=== PATIENT | female | born 1960 | race Caucasian/White ===

== ENCOUNTER → 2017-11-27 | Outpatient (CLI) | payer OTHER | LOC: M PLARAD 07:14 | DX: M54.5 Low back pain (principal) | CPT/HCPCS: 72148 ==

== ENCOUNTER → 2020-08-07 | Outpatient (REF) | payer OTHER ==
[2020-08-07 14:45] LABS: CREATININE, URINE 97.9 MG/DL; MAU/CREAT RATIO 339.1 MCG/MG (0.0-30.0)
== END ==
LOC: M LAB REF 13:03
PROVIDERS: ATTEND Nurse Practitioner Family
DX: E11.65 Type 2 diabetes mellitus with hyperglycemia (principal)

== ENCOUNTER → 2020-10-05 | Outpatient (CLI) | payer OTHER ==
--- NOTE | 2020-10-05 10:58 | REP ---
INDICATION: PREOP. COMPARISON: No comparison study. TECHNIQUE: Two views.. FINDINGS: The lungs are well inflated and free of infiltrate. There is moderate to marked cardiomegaly. The heart has a somewhat water bottle configuration which raises the question of pericardial effusion. Pulmonary vasculature is slightly cephalized. Pleural angles are sharp. There are degenerative changes in the thoracic spine. The patient is status post cervical discectomy and fusion plating. IMPRESSION: Moderate cardiac enlargement, water bottle shaped heart question pericardial effusion. Cephalization of the vasculature. Status post cervical spine fusion plating.. <Electronically signed by Ajay Arriaga > 10/05/20 0292
== END ==
LOC: M WUC 08:28
PROVIDERS: ATTEND Nurse Practitioner Adult Health
DX: Z01.818 Encounter for other preprocedural examination (principal); I51.7 Cardiomegaly; M43.22 Fusion of spine, cervical region

== ENCOUNTER 2020-10-16 12:15 | Inpatient (IN) | payer OTHER ==
[~2020-10-16] VITALS: Ht 162.6 cm; Wt 85.8 kg
[2020-10-16] VITALS (28 sets, daily range): BP systolic 121–189; BP diastolic 60–95
[2020-10-16] MEDS ORDERED: ATOR80TA59 PO (12:35)
[2020-10-16] MEDS ORDERED: LEVOTAB10 PO (12:35)
[2020-10-16] MEDS ORDERED: GEMF600T5 PO (12:35)
[2020-10-16] MEDS ORDERED: EZET10TA21 PO (12:35)
[2020-10-16] MEDS ORDERED: GLIM2TAB4 PO (12:35)
[2020-10-16] MEDS ORDERED: METF10004 PO (12:35)
[2020-10-16] MEDS ORDERED: FLON1SPR NARES (12:36)
[2020-10-16] MEDS ORDERED: LISI40TA PO (12:36)
[2020-10-16] MEDS ORDERED: NORCO, ANEXSIA 5/325MG TABLET (HYDROcodone/ACETAMINOPHEN) PO PRN (13:15)
[2020-10-16] MEDS ORDERED: ONDANSETRON 4MG/2ML VIAL IV PRN (13:15)
[2020-10-16] MEDS ORDERED: BISACODYL 10 MG SUPP PR PRN (13:15)
[2020-10-16] MEDS ORDERED: LEVALBUTEROL 1.25 MG/0.5 ML CONCENTRATE NEB NEB PRN (13:15)
[2020-10-16] MEDS ORDERED: PERCOCET 5MG/325MG TAB PO PRN (13:15)
[2020-10-16] MEDS ORDERED: ACETAMINOPHEN TAB 650MG DOSE (2X325MG) PO PRN (13:15)
--- NOTE | 2020-10-16 13:20 | REP ---
INDICATION: pericardial effusion. COMPARISON: Portable chest dated 10/16/2020 and PA and lateral chest dated 10/05/2020. TECHNIQUE: CT of the chest without IV contrast. FINDINGS: There is a pericardial effusion measuring up to 2.7 cm in depth. There is calcified vascular atheroma in the coronary arteries. There are no infiltrates or pleural effusions. There is minor atelectasis versus parenchymal scarring in the right middle lobe. No lung masses or nodules are identified. There is no mediastinal or axillary lymph node enlargement. The study is insensitive for hilar lymph node enlargement in the absence of IV contrast. Upper abdomen: The visualized areas of the unenhanced liver, gallbladder, pancreas, spleen, adrenals and renal upper poles are unremarkable. IMPRESSION: Pericardial effusion measuring up to 2.7 cm in depth. Calcified vascular atheroma in the coronary arteries. <Electronically signed by Jordan Garrison > 10/16/20 0295
[2020-10-16 13:21] LABS: BASO # 0.1 10^3/uL (0.0-0.2); BASO % 0.5 % (0.0-1.0); EOS # 0.2 10^3/uL (0.0-0.5); EOS % 1.5 % (0.0-3.0); HEMATOCRIT 47.1 % (36.0-47.0); HEMOGLOBIN 15.6 g/dl (12.0-15.5); LYMPH % 27.3 % (24.0-44.0); MEAN CORPUSCULAR HEMOGLOBIN 29.7 pg (27.0-33.0); MEAN CORPUSCULAR HGB CONC 33.1 g/dl (32.0-36.5); MEAN CORPUSCULAR VOLUME 89.7 fl (80.0-96.0); MONO # 1.1 10^3/uL (0.0-0.8); MONO % 9.6 % (0.0-5.0); NEUTROPHILS # 6.7 10^3/uL (1.5-8.5); NEUTROPHILS % 60.7 % (36.0-66.0); PLATELET COUNT, AUTOMATED 343 10^3/uL (150-450); RED BLOOD COUNT 5.25 10^6/uL (4.00-5.40)
[2020-10-16 13:33] LABS: PARTIAL THROMBOPLASTIN TIME 27.6 SECONDS (24.2-38.5)
[2020-10-16 13:36] LABS: INR 0.92; PROTHROMBIN TIME 12.5 SECONDS (12.5-14.3)
--- NOTE | 2020-10-16 13:56 | REP ---
INDICATION: SOB. COMPARISON: PA and lateral chest 12/06/2019. TECHNIQUE: Single AP view of the chest performed portably with the patient sitting. FINDINGS: The cardiac size is enlarged. On the CT performed the same date there is a pericardial effusion. The lung lee are clear. The brenda, mediastinum, and skeletal structures are unremarkable except for a fracture of the right humeral shaft, probably old and a cervical spine stabilization plate, unchanged. IMPRESSION: Cardiomegaly. There is a pericardial effusion on the CT performed earlier today. <Electronically signed by Jordan Garrison > 10/16/20 [id number]
[2020-10-16] MEDS ORDERED: KCL 20MEQ IN D5/NS 1000ML 1,000 ML IV SCH (14:00)
[2020-10-16] MEDS: LEVALBUTEROL 1.25 MG/0.5 ML CONCENTRATE NEB NEB SCH ×2 (14:00→20:00)
[2020-10-16] MEDS: KETOROLAC 30 MG/ML 1ML VIAL IV SCH ×2 (14:13→20:33)
--- NOTE | 2020-10-16 14:33 | CR ---
CONSULTATION DATE: 10/16/2020 REASON FOR CONSULTATION: The patient is seen at the request of Dr. Copeland of [place] for pericardial effusion. HISTORY OF PRESENT ILLNESS: The patient is a 60-year-old white female who is scheduled for bladder repair surgery and was undergoing a cardiac clearance. She was found to have a large pericardial effusion on echocardiography. Surprisingly she is almost asymptomatic. She is not aware of any shortness of breath. She does not complain of orthopnea or paroxysmal nocturnal dyspnea. She does not complain of peripheral edema. There has been no cough. No fevers, chills, or sweats. No sputum production. There is no chest pain or chest discomfort and there is no dysphagia. She has not had any recent upper respiratory infections. She underwent echocardiogram today and was found to have a very large pericardial effusion. On 10/14, she also underwent a CT scan at [place] and was seen to have a pericardial effusion then. PAST MEDICAL HISTORY: 1. Diabetes. 2. Hypertension. 3. Hypercholesterolemia. PAST SURGICAL HISTORY: To be determined. ALLERGIES: None. HOME MEDICATIONS: - atorvastatin 80 mg once daily - azintamide 10 mg once daily - Flonase two sprays to the nares once daily p.r.n. congestion - gemfibrozil 600 mg once daily - glimepiride 2 mg once daily - lisinopril 40 mg once daily - metformin 1000 mg b.i.d. TRAVEL HISTORY: To be determined. EXPOSURES: No dogs, birds, or cats at home. No exposure to tuberculosis. 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 No asbestos exposure. HABITS: Smokes a pack a day of [place] since she was very young. Alcohol drinks socially. No illicit drugs. FAMILY HISTORY: Not permit to the acute situation. REVIEW OF SYSTEMS: Constitutional: See HPI. Without fevers, chills, sweats, or night sweats. Nose: No epistaxis. Mouth: Has her own teeth. Respiratory: Without cough, shortness of breath, wheezing, does smoke. Cardiac: Without orthopnea or paroxysmal nocturnal dyspnea, prior myocardial infarction, chest discomfort, or chest pain. GI: Without nausea, vomiting, diarrhea, constipation, melena, or hematochezia. : Has urinary incontinence when she sneezes, but no hematuria or dysuria. Neurologic: Without paresthesias, paralysis, or seizures. Psychiatric: Without pathological anxieties, depression, or psychosis. Endocrine. With diabetes. Without thyroid disease. PHYSICAL EXAMINATION: GENERAL APPEARANCE: Obese, well-developed, and well-nourished white female in no acute distress. VITAL SIGNS: Temperature 97.3, heart rate 107 in a regular rate and rhythm, respiratory rate 20 without the use of accessory muscles. She is 97% saturated on room air and her blood pressure is 158/72. EYES: Pupils equal, round, reactive to light. Extraocular movements intact. Sclerae nonicteric. NOSE: Without deformity. MOUTH: Shows mucous membranes to be pink and moist. Lips and gums with no lesions and no thrush. HEAD: Normocephalic. NECK: Supple with no jugular venous distention and no subcutaneous emphysema. Trachea is midline. She has 2+ carotid upstrokes. No bruits. No lymphadenopathy or thyromegaly. LUNGS: Show normal vesicular sounds with percussion note that is full to the diaphragm on either side. CARDIAC: Shows muffled heart sounds without detectable murmurs, clicks, gallops, or rubs. I cannot feel her PMI. ABDOMEN: Soft and nontender, but obese. Bowel sounds are positive. I cannot detect hepatomegaly. There is no CVA tenderness. EXTREMITIES: Show no pretibial edema. No calf tenderness. No differential swelling of the upper extremities. SKIN: Warm, dry, and perfuse without cyanosis or mottling including that of the nail beds and the knees. NEUROLOGIC: Shows 2-12 intact. Normal gross motor. Gross sensation intact. Gait is not tested. PSYCHIATRIC: Shows her to be awake, alert, and oriented x3 with appropriate mood and affect and conversational. INVESTIGATIONS: Her white count is 11.0 with hemoglobin and hematocrit of 15.6 and 47.1 respectively. Platelet count is 343,000. Differential shows 60% neutrophils, 20% lymphocytes, and 9% monocytes. There are no immature forms or toxic granulations. Her chemistries are still pending. PT/INR is 12.5 and 0.92 respectively with a PTT of 26 seconds. COVID test is pending. Her chest x-ray shows a large globular heart. It is a portable chest x-ray. CT scan shows a large pericardial effusion, which is concentric. There are no pulmonary masses. Adrenals have a normal configuration. There is no evidence of cirrhosis. There is no mediastinal lymphadenopathy. She has coronary calcifications of the left anterior descending coronary artery and the right coronary artery, as well as the marginal and circumflex coronary arteries. IMPRESSION: 1. Large pericardial effusion of unknown origin. 2. Diabetes. 3. Hypertension. 4. Hypercholesterolemia. PLAN AND DISCUSSION: I will undertake a pericardiocentesis and tube pericardiostomy in the intensive care unit. It is a concentric effusion and I should be able to approach it percutaneously rather than a pericardial window. We will send the fluid with the requisite studies of hematology, cytologies, chemistries, and bacteriologies. I suspect by exclusion, this is going to bar turner to be a viral pericarditis. I will run an NOVA, RA, and rheumatoid factor for autoimmune etiology.
[2020-10-16 14:40] LABS: BLOOD UREA NITROGEN 18 MG/DL (7-18); CALCIUM LEVEL 9.9 MG/DL (8.5-10.1); CARBON DIOXIDE LEVEL 26 MEQ/L (21-32); CHLORIDE LEVEL 110 MEQ/L (98-107); CK-MB VALUE MASS 3.4 NG/ML (<3.6); CPK CREATINE PHOSPHOKINASE 67 U/L (26-192); CREATININE FOR GFR 0.72 MG/DL (0.55-1.30); GLOMERULAR FILTRATION RATE > 60.0 (>51); GLUCOSE, FASTING 66 MG/DL (70-100); MB/CK RELATIVE INDEX 5.07 (< OR =4); MYOGLOBIN 48 NG/ML (13-71); POTASSIUM SERUM 4.2 MEQ/L (3.5-5.1); SODIUM LEVEL 141 MEQ/L (136-145); TROPONIN I < 0.02 NG/ML (< 0.10)
[2020-10-16] MEDS ORDERED: TRUL0.5I SC (14:41)
[2020-10-16 15:03] LABS: RSV AMPLIFICATION NEGATIVE (NEGATIVE)
[2020-10-16] MEDS ORDERED: MIDAZOLAM INJ 2MG/2ML VIAL (J2250 PER 1MG) As Ordered ONE ×2 (15:32→15:33)
[2020-10-16] MEDS ORDERED: LIDOCAINE 1% MDV 20ML VIAL As Ordered ONE ×2 (15:34→15:52)
[2020-10-16] MEDS ORDERED: MIDAZOLAM INJ 2MG/2ML VIAL (J2250 PER 1MG) IV ONE (16:30)
[2020-10-16] MEDS ORDERED: LIDOCAINE 1% MDV 20ML VIAL SC ONE (16:30)
--- NOTE | 2020-10-16 16:40 | RO ---
OPERATIVE NOTE DATE OF OPERATION: 10/16/2020 PREOPERATIVE DIAGNOSIS: Pericardial effusion. POSTOPERATIVE DIAGNOSIS: Pericardial effusion with tamponade. PROCEDURE: 1. Pericardiocentesis. 2. Pericardiostomy under echocardiographic control with moderate sedation. FINDINGS: Pericardium was drained of 1000 mL of serous fluid. The echocardiogram prior to undertaking the drainage showed a severely compressed right ventricle, which collapsed during diastole. It is surprising that she was not more symptomatic. PROCEDURE DESCRIPTION: Under satisfactory moderate sedation achieved eventually with 6 mg of Versed, patient was prepped and draped in the usual sterile fashion. The subxiphoid fossa was infiltrated with 1% lidocaine to the rectus fascia. Under echocardiographic control, needle was placed, and fluid was obtained after watching the needle enter with the echocardiogram. A wire was placed. Tract was dilated, and a pericardiostomy tube was placed over a dilator and stiff guiding cannula. The pericardiostomy tube was then advanced and specimen was collected. Sent for the records, specimens of cytology, hematologies, bacteriologies, and chemistries. The pericardiostomy tube was secured to the chest wall with three 2-0 silk sutures. Patient tolerated the procedure well, and a chest x-ray is pending.
[2020-10-16] MEDS ORDERED: DEXTROSE 50% 50 ML SYRINGE IV PRN (16:45)
[2020-10-16] MEDS ORDERED: GLUCOSE 4GM CHEW TABLET PO PRN (16:45)
[2020-10-16] MEDS ORDERED: GLUCAGON INJ 1MG VIAL SC PRN (16:45)
--- NOTE | 2020-10-16 16:45 | REP ---
INDICATION: S/P PERICARDIOCENTESIS. 4:24 p.m. film COMPARISON: Comparison chest x-ray October 16, 2020. 1:07 p.m. film. TECHNIQUE: Portable upright AP chest radiograph. FINDINGS: Monitoring electrodes are seen. There is a pericardial drainage catheter overlying the base of the heart projecting at the left upper quadrant. Oxygen delivery tubing is seen. There is linear fibrosis versus platelike atelectasis at the left lung base. No infiltrate is seen. Heart is not enlarged. Pulmonary vasculature is not increased.. No significant bony abnormality. Patient is status post cervical spine discectomy and fusion plating. No evidence of pneumothorax. Heart size is improved compared to the October 16, 2020 with study done at 1:07 p.m. IMPRESSION: Pericardial drainage catheter in place. Cardiac size improved. No complication seen. Platelike atelectasis versus linear fibrosis left base.. <Electronically signed by jAay Arriaga > 10/16/20 [id number]
--- NOTE | 2020-10-16 17:09 | HPEPDOC ---
General Date of Admission Oct 16, 2020 at 13:09 Date of Service: Oct 16, 2020 Chief Complaint The patient is a 60-year-old female admitted with a reason for visit of Pericardial Effusion. 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 She denied any shortness of breath, denied any cough or phlegm, denied any recent URI. Denied any h/o Lupus like disorders. She does say she has arthritis and has some chronic knee pain about 3/10 dull aching in nature with no radiation. Does not need to take any medication for this. She was urgently seen by Dr Braswell and a bedside pericardiocentesis and pericardiotomy tube placement has been planned. Patient was admitted for pericardial effusion with tamponade. Home Medications Scheduled Atorvastatin Calcium (Atorvastatin Calcium) 80 Mg Tablet, 80 MG PO QHS, (Reporte d) Dulaglutide (Trulicity) 1.5 Mg/0.5 Ml Pen.injctr, 1.5 MG SC QWEEK, (Reported) MONDAYS Ezetimibe (Ezetimibe) 10 Mg Tablet, 10 MG PO QHS, (Reported) Gemfibrozil (Gemfibrozil) 600 Mg Tablet, 600 MG PO BID, (Reported) Glimepiride (Glimepiride) 2 Mg Tablet, 2 MG PO DAILY, (Reported) Levocetirizine Dihydrochloride (Levocetirizine Dihydrochloride) 5 Mg Tablet, 5 MG PO DAILY, (Reported) Lisinopril (Lisinopril) 40 Mg Tablet, 40 MG PO DAILY, (Reported) Metformin HCl (Metformin HCl) 1,000 Mg Tablet, 1,000 MG PO BID, (Reported) Scheduled PRN Fluticasone Propionate (Flonase Allergy Relief) 9.9 Ml [place].susp, 2 SPRAY NARES DAILY PRN for CONGESTION, (Reported) Allergies Coded Allergies: No Known Allergies (Unverified , 10/16/20) Past Medical History Medical History Diabetes, hypertension, obesity, Arthritis, HLD, bladder problem Surgical History tubal ligation Neck surgery about 5 years ago , has plate in it. Family History Significant Family History: Diabetes sisters with arthritis Social History * Smoker: current smoker Alcohol: occationally Drugs: denies A-FIB/CHADSVASC A-FIB History Current/History of A-Fib/PAF?: No Review of Systems Constitutional: Denies: Chills, Fever, Night Sweats Eyes: Denies: Pain, Vision change ENT: Denies: Head Aches, Ear Pain, Dysphagia Skin: Denies: Rash, Lesions, Breakdown Pulmonary: Denies: Dyspnea, Cough Cardiovascular: Denies: Chest Pain, Palpitations, Orthopnea, Paroxysmal Noc. Dyspnea, Lt Headedness Gastrointestinal: Denies: Nausea, Vomiting, Abdominal Pain, Diarrhea Genitourinary: Reports: Frequency; Denies: Dysuria, Incontinence, Retention Physical Examination General Exam: Positive: Alert, Cooperative, No Acute Distress Eye Exam: Positive: PERRLA, Conjunctiva & lids normal, EOMI; Negative: Sclera icteric ENT Exam: Positive: Atraumatic, Mucous membr. moist/pink, Pharynx Normal Neck Exam: Positive: Supple, JVD; Negative: thyromegaly Chest Exam: Positive: Clear to auscultation, Normal air movement Heart Exam: Positive: Rate Normal, Regular Rhythm, Normal S1, Normal S2; Negative: Murmurs, Rubs Telemetry: Positive: No significant arrhythmia Abdomen Exam: Positive: Normal bowel sounds, Soft; Negative: Tenderness, Hepatospenomegaly Extremity Exam: Positive: Normal pulses; Negative: Clubbing, Cyanosis, Edema Skin Exam: Positive: Nl turgor and temperature; Negative: Breakdown, Lesion Neuro Exam: Positive: Normal Gait, Normal Speech, Cranial Nerves 3-12 NL, Reflexes 2+ Vital Signs Vital Signs Date Time Temp Pulse Resp B/P (MAP) Pulse Ox O2 Delivery O2 Flow Rate FiO2 10/16/20 15:28 143/78 (99) 10/16/20 15:00 97 18 95 Room Air 10/16/20 12:16 97.3 Laboratory Data Labs 24H Laboratory Tests 2 10/16/20 13:03: Immature Granulocyte % (Auto) 0.4, Neutrophils (%) (Auto) 60.7, Lymphocytes (%) (Auto) 27.3, Monocytes (%) (Auto) 9.6H, Eosinophils (%) (Auto) 1.5, Basophils (%) (Auto) 0.5, Neutrophils # (Auto) 6.7, Lymphocytes # (Auto) 3.0, Monocytes # (Auto) 1.1H, Eosinophils # (Auto) 0.2, Basophils # (Auto) 0.1, Nucleated Red Blood Cells % (auto) 0.0, Prothrombin Time 12.5, Prothromb Time International Ratio 0.92, Activated Partial Thromboplast Time 27.6, Coronavirus (COVID- 19)(PCR) NEGATIVE, Influenza Type A (RT-PCR) NEGATIVE, Influenza Type B (RT-PCR) NEGATIVE, Respiratory Syncytial Virus (PCR) NEGATIVE 10/16/20 14:00: Anion Gap 5L, Glomerular Filtration Rate > 60.0, Calcium Level 9.9, Total Creatine Kinase 67, Creatine Kinase MB 3.4, Creatine Kinase MB Relative Index 5.07H, Myoglobin 48, Troponin I < 0.02, Rheumatoid Factor < 10.0 CBC/BMP Laboratory Tests 10/16/20 13:03 10/16/20 14:00 Assessment/Plan 60 year old female with PMH of Diabetes, hypertension, obesity, Arthritis, HLD, bladder problem 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 She denied any shortness of breath, denied any cough or phlegm, denied any recent URI. Denied any h/o Lupus like disorders. She does say she has arthritis and has some chronic knee pain about 3/10 dull aching in nature with no radiation. Does not need to take any medication for this. She was urgently seen by Dr Braswell and a bedside pericardiocentesis has been planned followed by creation of pericardial window in the OR later. Patient was admitted for pericardial effusion with tamponade. Pericardial effusion cause to be determined. Autoimmune work up has been ordered. RA is negative management as per Dr Braswell. Diabetes Hold metformin and trulicity continue glimiperide Lispro as per sliding scale FS ac and HS Hypertension will continue lisinopril with hold parameters. HLD statin will continue. Plan / VTE VTE Prophylaxis Ordered?: Yes JAS GARCIA MD Oct 16, 2020 16:45
[2020-10-16 17:28] LABS: LDH LACTATE DEHYDROGENASE 133 U/L (84-246)
[2020-10-16] MEDS: HumaLOG INSULIN (NovoLOG) PER UNIT SC SCH (17:30)
[2020-10-16 17:38] LABS: PH BODY FLUID 7.475 UNITS (NOT ESTABLISHED); SOURCE, BODY FLUID pH PERICARDIAL
[2020-10-16 17:57] LABS: APPEARANCE, BODY FLUID CLOUDY (CLEAR); SOURCE, BODY FLUID PERICARDIAL
[2020-10-16 18:00] LABS: SOURCE, BODY FLUID ALBUMIN PLEURAL; SOURCE, BODY FLUID TOT PROTEIN PLEURAL; TOTAL PROTEIN, BODY FLUID 6.5 G/DL (NOT ESTABLISHED)
[2020-10-16 18:01] LABS: AMYLASE, BODY FLUID 56 U/L (NOT ESTABLISHED); CHOLESTEROL, BODY FLUID 64 MG/DL (NOT ESTABLISHED); LDH, BODY FLUID 191 U/L (NOT ESTABLISHED); SOURCE, BODY FLUID AMYLASE PERICARDIAL; SOURCE, BODY FLUID CHOL PERICARDIAL; SOURCE, BODY FLUID GLUCOSE PERICARDIAL; SOURCE, BODY FLUID LDH PERICARDIAL; SOURCE, BODY FLUID TRIG PERICARDIAL; TRIGLYCERIDE, BODY FLUID 16 MG/DL (NOT ESTABLISHED)
[2020-10-16] MEDS: HEPARIN SOD (PORCINE) 5000UNITS/ML 1ML VIAL/SYRINGE SC SCH (20:36)
[2020-10-16] MEDS: gemfibroziL 600 MG TAB PO SCH (20:36)
[2020-10-16] MEDS: EZETIMIBE 10 MG TAB (ZETIA) PO SCH (20:37)
[2020-10-16] MEDS: DOCUSATE SODIUM 100MG CAPSULE PO SCH (20:37)
[2020-10-16] MEDS: ATORVASTATIN 20 MG TAB PO SCH (20:37)
[2020-10-16] MEDS ORDERED: HumaLOG INSULIN (NovoLOG) PER UNIT SC SCH (21:00)
[2020-10-16] MEDS: PERCOCET 5MG/325MG TAB PO PRN (21:56)
[2020-10-17] VITALS (9 sets, daily range): BP systolic 92–162; BP diastolic 56–73
[2020-10-17] MEDS: LEVALBUTEROL 1.25 MG/0.5 ML CONCENTRATE NEB NEB SCH ×4 (01:56→20:00)
[2020-10-17] MEDS: KETOROLAC 30 MG/ML 1ML VIAL IV SCH (02:15)
[2020-10-17 04:42] LABS: BASO # 0.1 10^3/uL (0.0-0.2); BASO % 0.3 % (0.0-1.0); EOS # 0.1 10^3/uL (0.0-0.5); EOS % 0.4 % (0.0-3.0); HEMATOCRIT 47.7 % (36.0-47.0); HEMOGLOBIN 15.2 g/dl (12.0-15.5); MEAN CORPUSCULAR HEMOGLOBIN 28.4 pg (27.0-33.0); MEAN CORPUSCULAR HGB CONC 31.9 g/dl (32.0-36.5); MEAN CORPUSCULAR VOLUME 89.2 fl (80.0-96.0); MONO # 1.1 10^3/uL (0.0-0.8); MONO % 7.1 % (0.0-5.0); NEUTROPHILS % 78.8 % (36.0-66.0); PLATELET COUNT, AUTOMATED 324 10^3/uL (150-450); RED BLOOD COUNT 5.35 10^6/uL (4.00-5.40); WHITE BLOOD COUNT 15.3 10^3/uL (4.0-10.0)
[2020-10-17 05:03] LABS: CALCIUM LEVEL 9.3 MG/DL (8.5-10.1); CREATININE FOR GFR 1.13 MG/DL (0.55-1.30); GLOMERULAR FILTRATION RATE 52.5 (>51); POTASSIUM SERUM 4.5 MEQ/L (3.5-5.1)
[2020-10-17 06:15] LABS: ABG BASE EXCESS -5.4 (-2.0-2.0); ABG HCO3 20.6 MEQ/L (22.0-26.0); ABG O2 SATURATION 95.4 % (95.0-99.0); ABG PARTIAL PRESSURE CO2 41.8 mmHg (35.0-45.0); ABG TOTAL CO2 21.9 MEQ/L (22.0-29.0)
[2020-10-17] MEDS: GLIMEPIRIDE 2 MG TAB PO SCH (07:34)
[2020-10-17] MEDS: HumaLOG INSULIN (NovoLOG) PER UNIT SC SCH ×5 (07:35→20:47)
[2020-10-17] MEDS ORDERED: NS 1,000 ML IV SCH (08:00)
--- NOTE | 2020-10-17 08:08 | REP ---
INDICATION: pericardial effusion COMPARISON: 10/16/2020 TECHNIQUE: PA and lateral. FINDINGS: Pericardial drainage tube is identified and the cardiac silhouette appears decreased in size. The lung lee demonstrate stable chronic appearing interstitial changes. Lateral view cannot exclude a small left pleural effusion. No definite pneumothorax. Skeletal structures are intact IMPRESSION: 1. Pericardial drainage catheter in place with decreased cardiac silhouette. 2. Lateral view cannot exclude small left pleural effusion. <Electronically signed by Juanito Mcdonald > 10/17/20 0881
[2020-10-17] MEDS: MOM 30ML SUSPENSION UDC PO SCH (08:47)
[2020-10-17] MEDS: DOCUSATE SODIUM 100MG CAPSULE PO SCH ×2 (08:47→20:47)
[2020-10-17] MEDS: PANTOPRAZOLE 40MG TAB (PROTONIX) PO SCH (08:47)
[2020-10-17] MEDS: gemfibroziL 600 MG TAB PO SCH ×2 (08:47→20:51)
[2020-10-17] MEDS: HEPARIN SOD (PORCINE) 5000UNITS/ML 1ML VIAL/SYRINGE SC SCH ×2 (08:48→20:47)
[2020-10-17] MEDS ORDERED: lisinopriL 40 MG TAB PO SCH (09:00)
--- NOTE | 2020-10-17 10:43 | IPNPDOC ---
Subjective Date Seen The patient was seen on 10/17/20. Subjective Chief Complaint/HPI Feeling good , no issues overnight. Total fluid drained till now is 1275 cc. Having a little dry cough. Bp soft this am. Good oral intake. Objective Physical Examination General Exam: Positive: Alert, Cooperative, No Acute Distress Eye Exam: Positive: PERRLA, Conjunctiva & lids normal, EOMI; Negative: Sclera icteric ENT Exam: Positive: Atraumatic, Mucous membr. moist/pink, Pharynx Normal Neck Exam: Positive: Supple, JVD; Negative: thyromegaly Chest Exam: Positive: Normal air movement, Wheezing (some scattered wheezes on deep expiration.), Other (crackles at the left base) Heart Exam: Positive: Rate Normal, Regular Rhythm, Normal S1, Normal S2; Negative: Murmurs, Rubs Telemetry: Positive: No significant arrhythmia Abdomen Exam: Positive: Normal bowel sounds, Soft; Negative: Tenderness, Hepatospenomegaly Extremity Exam: Positive: Normal pulses; Negative: Clubbing, Cyanosis, Edema Skin Exam: Positive: Nl turgor and temperature; Negative: Breakdown, Lesion Neuro Exam: Positive: Normal Gait, Normal Speech, Cranial Nerves 3-12 NL, Reflexes 2+ Assessment /Plan Assessment 60 year old female with PMH of Diabetes, hypertension, obesity, Arthritis, HLD, bladder problem 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 She denied any shortness of breath, denied any cough or phlegm, denied any recent URI. Denied any h/o Lupus like disorders. She does say she has arthritis and has some chronic knee pain about 3/10 dull aching in nature with no radiation. Does not need to take any medication for this. She was urgently seen by Dr Braswell and a bedside pericardiocentesis and pericardial drain insertion was done in ICU. Patient was admitted for pericardial effusion with tamponade. Pericardial effusion cause to be determined. Most likely viral On initial insertion of pericardial drain 1000 cc came out. Fluid study is exudative predominantly mononuclear. Cultures pending. Gram stain few WBC, few Rbc no organism. Autoimmune work up has been ordered. RA is negative management as per Dr Braswell. Diabetes Hold metformin and trulicity continue glimiperide Lispro as per sliding scale FS ac and HS Hypertension Bp low normal this am will stop lisinopril HLD statin will continue. Plan/VTE VTE Prophylaxis Ordered?: Yes VS, I&O, 24H, Juanita Vital Signs/I&O Vital Signs Date Time Temp Pulse Resp B/P (MAP) Pulse Ox O2 Delivery O2 Flow Rate FiO2 10/17/20 08:43 99.0 108 18 122/59 (80) 90 Nasal Cannula 1.0 10/17/20 04:00 94 I&O- Last 24 Hours up to 6 AM 10/17/20 06:00 Intake Total 360 ml Output Total 1395 ml Balance -1035 ml Laboratory Data 24H LABS Laboratory Tests 2 10/16/20 13:03: Immature Granulocyte % (Auto) 0.4, Neutrophils (%) (Auto) 60.7, Lymphocytes (%) (Auto) 27.3, Monocytes (%) (Auto) 9.6H, Eosinophils (%) (Auto) 1.5, Basophils (%) (Auto) 0.5, Neutrophils # (Auto) 6.7, Lymphocytes # (Auto) 3.0, Monocytes # (Auto) 1.1H, Eosinophils # (Auto) 0.2, Basophils # (Auto) 0.1, Nucleated Red Blood Cells % (auto) 0.0, Prothrombin Time 12.5, Prothromb Time International Ratio 0.92, Activated Partial Thromboplast Time 27.6, Coronavirus (COVID- 19)(PCR) NEGATIVE, Influenza Type A (RT-PCR) NEGATIVE, Influenza Type B (RT-PCR) NEGATIVE, Respiratory Syncytial Virus (PCR) NEGATIVE 10/16/20 14:00: Anion Gap 5L, Glomerular Filtration Rate > 60.0, Calcium Level 9.9, Lactate Dehydrogenase 133, Total Creatine Kinase 67, Creatine Kinase MB 3.4, Creatine Kinase MB Relative Index 5.07H, Myoglobin 48, Troponin I < 0.02, Rheumatoid Factor < 10.0 10/16/20 16:32: Body Fluid pH 7.475, Body Fluid pH Source PERICARDIAL, Body Fluid WBC (Auto) 2094H, Body Fluid RBC (Auto) 6, Body Fluid Mononuclear Cells % Auto 98.0H, Fluid Polymorphonuclear Cell % Auto 2.0H, Body Fluid Glucose Source PERICARDIAL, Body Fluid Glucose 74, Body Fluid Protein Source PLEURAL, Body Fluid Total Protein 6.5, Body Fluid Albumin Source PLEURAL, Body Fluid Albumin 3.9, Body Fluid LDH Source PERICARDIAL, Body Fluid Lactate Dehydrogenase 191, Body Fluid Amylase Source PERICARDIAL, Body Fluid Amylase 56, Body Fluid Cholesterol 64, Body Fluid Cholesterol Source PERICARDIAL, Body Fluid Triglyceride Source PERICARDIAL, Body Fluid Triglycerides 16, Pericardial Fluid Source PERICARDIAL, Pericardial Fluid Color YELLOW, Pericardial Fluid Appearance CLOUDY 10/16/20 17:13: Bedside Glucose (Misc Panel) 57L 10/16/20 18:54: Bedside Glucose (Misc Panel) 104 10/16/20 20:26: Bedside Glucose (Misc Panel) 187H 10/17/20 04:16: Immature Granulocyte % (Auto) 0.4, Neutrophils (%) (Auto) 78.8H, Lymphocytes (%) (Auto) 13.0L, Monocytes (%) (Auto) 7.1H, Eosinophils (%) (Auto) 0.4, Basophils (%) (Auto) 0.3, Neutrophils # (Auto) 12.0H, Lymphocytes # (Auto) 2.0, Monocytes # (Auto) 1.1H, Eosinophils # (Auto) 0.1, Basophils # (Auto) 0.1, Nucleated Red Blood Cells % (auto) 0.0, Anion Gap 7L, Glomerular Filtration Rate 52.5, Calcium Level 9.3 10/17/20 05:58: Blood Gas Bicarbonate Standard 20.0L, Arterial Blood pH 7.310L, Arterial Blood Partial Pressure CO2 41.8, Arterial Blood Partial Pressure O2 80.0, Arterial Blood Total CO2 21.9L, Arterial Blood HCO3 20.6L, Arterial Blood Base Excess - 5.4L, Arterial Blood Oxygen Saturation 95.4 10/17/20 07:25: Bedside Glucose (Misc Panel) 129H CBC/BMP Laboratory Tests 10/16/20 13:03 10/16/20 14:00 10/17/20 04:16 Microbiology Microbiology 10/16/20 Acid Fast Stain, Received Pending 10/16/20 Mycobacterial Culture, Received Pending 10/16/20 Fungal Smear, Received Pending 10/16/20 Fungal Culture, Received Pending 10/16/20 Gram Stain - Final, Resulted 10/16/20 Anaerobic Culture, Resulted Pending 10/16/20 Body Fluid Culture, Received Pending JAS GARCIA MD Oct 17, 2020 10:43
[2020-10-17 11:33] LABS: THYROID STIMULATING HORMONE 0.364 uIU/ML (0.358-3.740)
[2020-10-17 12:07] LABS: ANTINUCLEAR ANTIBODIES DIRECT Negative (Negative)
--- NOTE | 2020-10-17 12:36 | IPN ---
PROGRESS NOTE DATE: 10/17/2020 This is now the first hospital day for Ms. Woods. A tube pericardiostomy catheter was placed yesterday. She has drained now over 1200 mL in total from the pericardium. She is feeling quite well, and her pain is being well controlled at the pericardiostomy tube site. She is in very good spirits and is, in fact, wanting to go home. Her vital signs show a maximum temperature of 99.0 with a heart rate that ranges between 102-118 in sinus rhythm, respiratory rate of constant 18, who is 90%-95% saturated on 2 liters nasal cannula. Her blood pressure is ranging between 92/56 to 162/73. Her intake and output for the past 24 hours has been recorded as 360 in and 1150 out, almost all that from the chest tube. In the past 11 hours, she has had 600 in and 445 out, for a positivity of 155 mL with 145 mL from the pericardial tube in the last 11 hours. PHYSICAL EXAMINATION: Her lung show normal vesicular sounds with some mild inspiratory crackles, most of which clear with coughing. Percussion note is full to the diaphragm. Cardiac exam shows much better heard heart sounds today. I do not appreciate murmurs, clicks, or gallops. There is no rub. I cannot feel her point of maximal impulse (PMI). S1 and S2 are normal. Abdomen is soft and nontender. Bowel sounds are positive. There is no hepatomegaly. No costovertebral angle (CVA) tenderness. I cannot detect a fluid wave. Extremities show no pretibial edema. No calf tenderness. No differential swelling of the upper extremities. Her skin is warm, dry, , and perfused without cyanosis or mottling, including that of the nailbeds and knees. Neck is supple. There no jugular venous distention. No subcutaneous emphysema. Trachea is midline. Mouth shows her mucous membranes to be pink and moist. Lips and commissures without lesions. No thrush. Eyes show her pupils to be equal and reactive. Extraocular movements intact. Sclerae anicteric. Neurologic shows II-XII intact. Normal gross motor, gross sensation intact. Gait is not tested. Psychiatric shows her to awake, alert, and oriented times three with appropriate mood and affect and conversational. Her white count today is 15.3, up from 11.0 yesterday. Hemoglobin and hematocrit 15.2 and 47.7, essentially unchanged from yesterday with a platelet count that is stable at 324. Differential shows 78% neutrophils, 13% lymphocytes, 7% monocytes. There are no immature forms or toxic granulations. Her electrolytes are normal today with a BUN and creatinine of 27 and 1.13, up from 18 and 0.72. Because of the rise in her creatinine, I have discontinued her Toradol. Glucose is 117 with a calcium 9.3. Her pericardial fluid has come back with a pH 7.47 with an LDH of 191 with a corresponding serum LDH of 133 and a total protein of 6.5. Her white cell count is 2094, 98% of which are monocytes and lymphocytes, and 2% are PMNs. This therefore looks like an exudative chronic effusion. It should be noted the glucose is 74, and this does not look to be bacterially infected. Her rheumatoid factor is less than 10.0, and her NOVA screen is still pending. Her chest x-ray today shows the lungs fully expanded to the chest wall. Cardiac silhouette is much diminished today. Pericardial tube looks to be in good place in the pericardial well. Costophrenic angles are sharp. I should note that her troponin yesterday was less than 0.02. IMPRESSION: 1. Pericardial effusion, unknown origin. See discussion below. 2. Diabetes. 3. Hypertension. 4. Hypercholesterolemia. 5. Tobacco abuse. 6. Chronic obstructive pulmonary disease. PLAN AND DISCUSSION: So far, there is very little evidence that this is either an infectious or an inflammatory pericardial effusion. We are still waiting for her antinuclear antibody (NOVA). She had no prior history of viral syndrome, and I would be loathe to imply that this was a viral pericarditis. We will await pathology on the pericardial fluid; however, I see no other masses to point to malignancy. Her thyroid functions were normal, done at [place] yesterday. I will recheck a thyroid stimulating hormone (TSH). There is no evidence of renal failure as a metabolic cause for her pericardial effusion. That therefore leaves us with a physiologic explanation of increased right heart pressures and perhaps pulmonary hypertension secondary to her chronic obstructive pulmonary disease (COPD) and smoking. I will therefore order another echo now that the pericardial effusion is drained to look at the pressures in the right atrium, ventricle, and the pulmonary artery. We will also, of course, look at her global systolic function, although it looked good yesterday. I will transfer her to the progressive care unit (PCU) today.
[2020-10-17] MEDS: PERCOCET 5MG/325MG TAB PO PRN (18:41)
[2020-10-17] MEDS: ATORVASTATIN 20 MG TAB PO SCH (20:47)
[2020-10-17] MEDS: EZETIMIBE 10 MG TAB (ZETIA) PO SCH (20:47)
[2020-10-18] VITALS: BP 126/78
[2020-10-18 04:00] VITALS: BP 132/72
[2020-10-18] MEDS: LEVALBUTEROL 1.25 MG/0.5 ML CONCENTRATE NEB NEB SCH ×4 (04:16→19:44)
[2020-10-18 04:45] LABS: BASO % 0.6 % (0.0-1.0); EOS # 0.1 10^3/uL (0.0-0.5); EOS % 1.6 % (0.0-3.0); HEMATOCRIT 47.4 % (36.0-47.0); HEMOGLOBIN 15.3 g/dl (12.0-15.5); LYMPH # 1.6 10^3/uL (1.5-5.0); LYMPH % 23.4 % (24.0-44.0); MEAN CORPUSCULAR HEMOGLOBIN 28.7 pg (27.0-33.0); MEAN CORPUSCULAR HGB CONC 32.3 g/dl (32.0-36.5); MEAN CORPUSCULAR VOLUME 88.9 fl (80.0-96.0); MONO # 0.7 10^3/uL (0.0-0.8); MONO % 10.9 % (0.0-5.0); NEUTROPHILS # 4.2 10^3/uL (1.5-8.5); NEUTROPHILS % 63.2 % (36.0-66.0); PLATELET COUNT, AUTOMATED 295 10^3/uL (150-450); RED BLOOD COUNT 5.33 10^6/uL (4.00-5.40); WHITE BLOOD COUNT 6.7 10^3/uL (4.0-10.0)
[2020-10-18 05:02] LABS: BLOOD UREA NITROGEN 16 MG/DL (7-18); CALCIUM LEVEL 9.1 MG/DL (8.5-10.1); CARBON DIOXIDE LEVEL 23 MEQ/L (21-32); CHLORIDE LEVEL 112 MEQ/L (98-107); CREATININE FOR GFR 0.69 MG/DL (0.55-1.30); GLOMERULAR FILTRATION RATE > 60.0 (>51); GLUCOSE, FASTING 94 MG/DL (70-100); POTASSIUM SERUM 4.2 MEQ/L (3.5-5.1); SODIUM LEVEL 140 MEQ/L (136-145)
[2020-10-18] MEDS: HumaLOG INSULIN (NovoLOG) PER UNIT SC SCH ×4 (07:30→19:50)
--- NOTE | 2020-10-18 07:58 | REP ---
INDICATION: pericardial effusion COMPARISON: 10/17/2020 TECHNIQUE: PA and lateral. FINDINGS: Pericardial drainage catheter again identified in stable position. The cardiac silhouette is relatively normal and decreased in size as compared through 10/16/2020. The mediastinum is grossly normal. The lung lee are clear and without acute consolidation, effusion, or pneumothorax. The skeletal structures are intact and normal. IMPRESSION: 1. Pericardial effusion is decreased and the cardiac silhouette appears improved as compared with 10/16/2020. 2. No acute pleuroparenchymal process appreciated. <Electronically signed by Juanito Mcdonald > 10/18/20 [id number]
[2020-10-18 08:00] VITALS: BP 144/70
[2020-10-18] MEDS: MOM 30ML SUSPENSION UDC PO SCH (08:27)
[2020-10-18] MEDS: GLIMEPIRIDE 2 MG TAB PO SCH (08:27)
[2020-10-18] MEDS: HEPARIN SOD (PORCINE) 5000UNITS/ML 1ML VIAL/SYRINGE SC SCH ×2 (08:27→20:41)
[2020-10-18] MEDS: PANTOPRAZOLE 40MG TAB (PROTONIX) PO SCH (08:27)
[2020-10-18] MEDS: DOCUSATE SODIUM 100MG CAPSULE PO SCH ×2 (08:27→20:40)
[2020-10-18] MEDS: gemfibroziL 600 MG TAB PO SCH ×2 (08:30→20:40)
--- NOTE | 2020-10-18 09:28 | IPNPDOC ---
Subjective Date Seen The patient was seen on 10/18/20. Subjective Chief Complaint/HPI Only 45 cc out int eh last 24 hours. No complaints today. Feels good, no fever or cough Objective Physical Examination General Exam: Positive: Alert, Cooperative, No Acute Distress Eye Exam: Positive: PERRLA, Conjunctiva & lids normal, EOMI; Negative: Sclera icteric ENT Exam: Positive: Atraumatic, Mucous membr. moist/pink, Pharynx Normal Neck Exam: Positive: Supple, JVD; Negative: thyromegaly Chest Exam: Positive: Clear to auscultation, Normal air movement Heart Exam: Positive: Rate Normal, Regular Rhythm, Normal S1, Normal S2; Negative: Murmurs, Rubs Telemetry: Positive: No significant arrhythmia Abdomen Exam: Positive: Normal bowel sounds, Soft; Negative: Tenderness, Hepatospenomegaly Extremity Exam: Positive: Normal pulses; Negative: Clubbing, Cyanosis, Edema Skin Exam: Positive: Nl turgor and temperature; Negative: Breakdown, Lesion Neuro Exam: Positive: Normal Gait, Normal Speech, Cranial Nerves 3-12 NL, Reflexes 2+ Assessment /Plan Assessment 60 year old female with PMH of Diabetes, hypertension, obesity, Arthritis, HLD, bladder problem 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 She denied any shortness of breath, denied any cough or phlegm, denied any recent URI. Denied any h/o Lupus like disorders. She does say she has arthritis and has some chronic knee pain about 3/10 dull aching in nature with no radiation. Does not need to take any medication for this. She was urgently seen by Dr Braswell and a bedside pericardiocentesis and pericardial drain insertion was done in ICU. Patient was admitted for pericardial effusion with tamponade. Pericardial effusion Most likely viral Rule out right heart failure or pulmonary hypertension as the cause of pericardial effusion On initial insertion of pericardial drain 1000 cc came out. Fluid study is exudative predominantly mononuclear. Cultures negative RA is negative, NOVA neg, TSH normal management as per Dr Braswell. Diabetes Hold metformin and trulicity continue glimiperide Lispro as per sliding scale FS ac and HS Hypertension Bp low normal this am will stop lisinopril HLD statin will continue. Possible COPD Plan/VTE VTE Prophylaxis Ordered?: Yes VS, I&O, 24H, Fishbone Vital Signs/I&O Vital Signs Date Time Temp Pulse Resp B/P (MAP) Pulse Ox O2 Delivery O2 Flow Rate FiO2 10/18/20 08:00 97.5 93 19 144/70 (94) 94 Room Air 10/17/20 12:00 1.0 10/17/20 04:00 94 I&O- Last 24 Hours up to 6 AM 10/18/20 06:00 Intake Total 2220 ml Output Total 2055 ml Balance 165 ml Laboratory Data 24H LABS Laboratory Tests 2 10/17/20 11:54: Bedside Glucose (Misc Panel) 44L 10/17/20 12:59: Bedside Glucose (Misc Panel) 133H 10/17/20 17:23: Bedside Glucose (Misc Panel) 150H 10/17/20 19:53: Bedside Glucose (Misc Panel) 205H 10/18/20 04:19: Immature Granulocyte % (Auto) 0.3, Neutrophils (%) (Auto) 63.2, Lymphocytes (%) (Auto) 23.4L, Monocytes (%) (Auto) 10.9H, Eosinophils (%) (Auto) 1.6, Basophils (%) (Auto) 0.6, Neutrophils # (Auto) 4.2, Lymphocytes # (Auto) 1.6, Monocytes # (Auto) 0.7, Eosinophils # (Auto) 0.1, Basophils # (Auto) 0.0, Nucleated Red Blood Cells % (auto) 0.0, Anion Gap 5L, Glomerular Filtration Rate > 60.0, Calcium Level 9.1 CBC/BMP Laboratory Tests 10/18/20 04:19 Microbiology Microbiology 10/16/20 Acid Fast Stain, Received Pending 10/16/20 Mycobacterial Culture, Received Pending 10/16/20 Fungal Smear, Received Pending 10/16/20 Fungal Culture, Received Pending 10/16/20 Gram Stain - Final, Complete 10/16/20 Anaerobic Culture - Final, Complete 10/16/20 Body Fluid Culture - Final, Complete JAS GARCIA MD Oct 18, 2020 09:28
[2020-10-18 12:00] VITALS: BP 129/66
[2020-10-18] MEDS: FUROSEMIDE 40 MG TAB PO SCH ×2 (12:29→18:42)
[2020-10-18] MEDS: COLCHICINE 0.6 MG TABLET PO SCH (12:30)
[2020-10-18] MEDS: POTASSIUM CHLORIDE 10 MEQ SR TABLET PO SCH ×2 (12:30→20:40)
[2020-10-18 16:00] VITALS: BP 138/71
--- NOTE | 2020-10-18 18:38 | IPN ---
PROGRESS NOTE DATE: 10/18/2020 SUBJECTIVE: This is now the second hospital day for Mrs. Woods after drainage of her pericardium. She is doing quite well today. Her breathing is being well-controlled with the pericardiostomy tube insertion site. She is breathing well. She is ambulating well. OBJECTIVE: VITAL SIGNS: Show a T-max of 98.8 with a heart rate that ranges between 93 and 102 in sinus rhythm. Respiratory rate 18-19 without the use of accessory muscles. She is 94% to 96% saturated on room air. Blood pressure ranging between 126/78 to 144/70. INTAKE AND OUTPUT: For the past 24 hours has been recorded as 1640 in and 1560 out for near equality. She has put 260 mL out the pericardial tube. Her weight today is 88.5 kg compared to 89.1 kg on admission. LUNGS: Show normal vesicular sounds. Percussion notes are full to the diaphragm. I hear no wheezes, rhonchi, or rales. CARDIAC: Today shows a pericardial friction rub. I do not appreciate murmurs or gallops. I cannot feel her PMI. S1, S2 are normal. HEART: Sounds are quite distinct. ABDOMEN: Soft and nontender. Bowel sounds positive. There is no hepatomegaly. No CVA tenderness. EXTREMITIES: Show no pretibial edema. No calf tenderness. No differential swelling of the upper extremities. SKIN: Warm, dry, and perfuse without cyanosis or mottling including that of the nail beds and knees. NECK: Supple. There is no jugular venous distention (JVD). No subcutaneous emphysema. Trachea is midline. MOUTH: Shows her mucous membranes to pink and moist. Lips and gums with no lesions and no thrush. EYES: Show her pupils to be equal and reactive. Extraocular movements intact. Sclerae anicteric. NEUROLOGIC: Shows 2-12 intact. Normal gross motor. Normal gross sensation. Gait not tested. PSYCHIATRIC: Shows her to be awake, alert, and oriented x3 with appropriate mood and affect and conversational. DIAGNOSTIC STUDIES: Her white count today is 6.7 with hemoglobin and hematocrit of 15.3 and 47.4 unchanged from yesterday with a platelet count of 295,000. Differential shows 60% neutrophils, 23% lymphocytes, 10% monocytes. There are no immature forms or toxic granulations. Her electrolytes are normal today with a BUN and creatinine of 16 and 0.69 down from 1.13. Glucose is 94 with a calcium of 9.1. Her chest x-ray today shows her lungs fully expand to the chest wall. She has a near normal cardiac silhouette. Costophrenic angles are sharp. There are no infiltrates. Her pleural fluid looked to be monocytic, lymphocytic, mildly exudative, and normal glycemic. It looks like a mildly exudative lymphocytic and/or monocytic effusion probably chronic. We are awaiting pathology. IMPRESSION: 1. Pericardial effusion of unknown origin. 2. Diabetes. 3. Hypertension. 4. Hypercholesterolemia. 5. Tobacco abuse. 6. Chronic obstructive pulmonary disease (COPD). PLAN AND DISCUSSION: Her echo was done, but I do not have the report back. To my reading, there is no tricuspid regurgitation and she has a normal sized vena cava. I will wait for the official reading. Because of the lack of tricuspid regurgitation, pulmonary artery pressures could not be measured. I still think by diagnosis exclusion, this is going to be secondary to increased right heart pressures from her COPD. I have had a long talk with her regarding smoking both today and yesterday. I have indicated to her that her smoking days are over and even showed her the [employer] cartoon of the [employer] men riding into the sunset with his websphere commerce developer saying "I miss my lung, Chidi." She seems to understand. There are no convincing causes for her pericardial effusion. I do hear a pericardial friction rub today, although I do not know whether that is in the tube itself or from inflammation. We will certainly await her pathology. In the meantime, I will treat her as pericarditis and mildly diurese her along with starting her on cholchicine.
[2020-10-18 20:00] VITALS: BP 137/74
[2020-10-18] MEDS: EZETIMIBE 10 MG TAB (ZETIA) PO SCH (20:40)
[2020-10-18] MEDS: ATORVASTATIN 20 MG TAB PO SCH (20:40)
[2020-10-19] VITALS: BP 119/61
[2020-10-19] MEDS: LEVALBUTEROL 1.25 MG/0.5 ML CONCENTRATE NEB NEB SCH ×4 (03:19→19:17)
[2020-10-19 04:00] VITALS: BP 117/60
[2020-10-19 04:00] LABS: BASO # 0.1 10^3/uL (0.0-0.2); BASO % 0.7 % (0.0-1.0); EOS # 0.2 10^3/uL (0.0-0.5); EOS % 2.7 % (0.0-3.0); HEMATOCRIT 48.4 % (36.0-47.0); HEMOGLOBIN 15.8 g/dl (12.0-15.5); LYMPH # 2.9 10^3/uL (1.5-5.0); LYMPH % 38.9 % (24.0-44.0); MEAN CORPUSCULAR HEMOGLOBIN 29.4 pg (27.0-33.0); MEAN CORPUSCULAR HGB CONC 32.6 g/dl (32.0-36.5); MONO # 0.9 10^3/uL (0.0-0.8); MONO % 12.8 % (0.0-5.0); NEUTROPHILS # 3.3 10^3/uL (1.5-8.5); NEUTROPHILS % 44.5 % (36.0-66.0); PLATELET COUNT, AUTOMATED 310 10^3/uL (150-450); RED BLOOD COUNT 5.38 10^6/uL (4.00-5.40); WHITE BLOOD COUNT 7.4 10^3/uL (4.0-10.0)
[2020-10-19 04:24] LABS: CALCIUM LEVEL 9.5 MG/DL (8.5-10.1); CREATININE FOR GFR 1.07 MG/DL (0.55-1.30); GLOMERULAR FILTRATION RATE 55.9 (>51); POTASSIUM SERUM 4.6 MEQ/L (3.5-5.1)
[2020-10-19] MEDS: HumaLOG INSULIN (NovoLOG) PER UNIT SC SCH ×4 (07:30→21:00)
[2020-10-19 08:00] VITALS: BP 128/65
--- NOTE | 2020-10-19 08:36 | REP ---
INDICATION: pericardial effusion COMPARISON: 10/18/2020 TECHNIQUE: PA and lateral. FINDINGS: Pericardial drainage catheter is in stable position. The mediastinum and cardiac silhouette appear essentially normal. The bilateral lung lee are clear. No consolidation, effusion, or pneumothorax. No pneumomediastinum. Skeletal structures are intact. IMPRESSION: 1. Pericardial catheter in stable position. Cardiac silhouette appears normal. 2. No acute mediastinal or pleuroparenchymal process appreciated. <Electronically signed by Juanito Mcdonald > 10/19/20 [id number]
[2020-10-19] MEDS: gemfibroziL 600 MG TAB PO SCH ×2 (09:00→21:26)
[2020-10-19] MEDS: HEPARIN SOD (PORCINE) 5000UNITS/ML 1ML VIAL/SYRINGE SC SCH ×2 (09:00→21:26)
[2020-10-19] MEDS: MOM 30ML SUSPENSION UDC PO SCH (09:00)
[2020-10-19] MEDS: DOCUSATE SODIUM 100MG CAPSULE PO SCH ×2 (09:01→21:25)
[2020-10-19] MEDS: FUROSEMIDE 40 MG TAB PO SCH ×2 (09:01→16:40)
[2020-10-19] MEDS: GLIMEPIRIDE 2 MG TAB PO SCH (09:01)
[2020-10-19] MEDS: COLCHICINE 0.6 MG TABLET PO SCH (09:01)
[2020-10-19] MEDS: POTASSIUM CHLORIDE 10 MEQ SR TABLET PO SCH ×2 (09:01→21:26)
[2020-10-19] MEDS: PANTOPRAZOLE 40MG TAB (PROTONIX) PO SCH (09:01)
--- NOTE | 2020-10-19 09:34 | ECHO ---
DATE OF PROCEDURE: 10/16/2020 Age: 60 Gender: Female Height: 162 cm Weight: 87 kg Body surface area: 1.93 m2 PATIENT LOCATION: Inpatient PCU, Room 3218. REFERRING PHYSICIAN: Ignacio Braswell M.D. INDICATION: Pericardial effusion. MEASUREMENTS: 2D Measurements: RV 3.8 cm LV 3.4 cm Septum 1.1 cm Posterior wall 1.1 cm Aortic Root 2.7 cm LA 2.9 cm LVEF 75% COMMENTS: Normal sinus rhythm without intraventricular conduction disturbance. Only two-dimensional echocardiographic images were acquired from the subcostal projection to evaluate her pericardial effusion. Normal left ventricular size, wall thickness, and hyperkinetic wall motion. Normal left atrial size. Normal right heart chamber sizes. Visualized portions of her mitral, aortic, and tricuspid valves were normal with adequate valvular cusp and leaflet opening. No apparent intracardiac mass. Large circumferential pericardial effusion measuring 1.4 cm anteriorly and 2.3 cm posteriorly with clearly visualized compression of the right heart chambers, as well as the left atrium intermittently consistent with cardiac tamponade. I understand the patient underwent a pericardiocentesis. ALEIDA
--- NOTE | 2020-10-19 09:51 | ECHO ---
DATE OF PROCEDURE: 10/17/2020 Age: 60 Gender: Female Height: 163 cm Weight: 89 kg REFERRING PHYSICIAN: Ignacio Braswell M.D. INDICATION: Pericardial effusion. MEASUREMENTS: IVC 1.3 cm Aorta 2.9 cm LA 3.5 cm IVS 1.2 cm LV 4.1 cm LVPW 1.0 cm Mitral E velocity 85 cm/s Mitral A 98 cm/s E prime septal 5.4 cm/s E prime lateral 9.9 cm/s FINDINGS: This study is of fair technical quality with difficult visualization. Underlying sinus tachycardia with heart rates slightly over 100 BPM. Left ventricle has normal size and normal contractility. I estimate LVEF around 70%. There appears to be subtle septal wall motion abnormality. The right ventricle was relatively poorly seen, but also appears normally contractile. Both atria appear normal. Aortic valve is mildly sclerotic, but has preserved mobility. Mitral and tricuspid valves appear grossly normal based on limited views. Pulmonic valve was not well seen at all. Trivial pericardial effusion is noted. Inferior vena cava is of normal size. Aortic root is normal. Aortic arch and abdominal aorta were not visualized. Doppler interrogation reveals competent aortic and mitral valves. There is trace tricuspid insufficiency, but quality of TR jet was not sufficient to adequately estimate pulmonary artery pressure. Mitral inflow pattern and tissue Doppler imaging of the mitral annulus revealed grade 1 diastolic dysfunction. CONCLUSIONS: 1. This study is of fair technical quality, underlying sinus tachycardia. 2. Preserved LV size with borderline LVH and normal LV systolic function, estimated LV EF around 70%. 3. Right ventricle also appears to have normal systolic function. 4. No hemodynamically significant valvular disease. 5. Normal central venous pressure. 6. Unable to estimate pulmonary artery pressure. 7. Minimal pericardial effusion. MTDD
--- NOTE | 2020-10-19 11:46 | IPNPDOC ---
Subjective Date Seen The patient was seen on 10/19/20. Subjective Chief Complaint/HPI No complaints this morning . Eager to go home. Objective Physical Examination General Exam: Positive: Alert, Cooperative, No Acute Distress Eye Exam: Positive: PERRLA, Conjunctiva & lids normal, EOMI; Negative: Sclera icteric ENT Exam: Positive: Atraumatic, Mucous membr. moist/pink, Pharynx Normal Neck Exam: Positive: Supple, JVD; Negative: thyromegaly Chest Exam: Positive: Clear to auscultation, Normal air movement Heart Exam: Positive: Rate Normal, Regular Rhythm, Normal S1, Normal S2; Negative: Murmurs, Rubs Telemetry: Positive: No significant arrhythmia Abdomen Exam: Positive: Normal bowel sounds, Soft; Negative: Tenderness, Hepatospenomegaly Extremity Exam: Positive: Normal pulses; Negative: Clubbing, Cyanosis, Edema Skin Exam: Positive: Nl turgor and temperature; Negative: Breakdown, Lesion Neuro Exam: Positive: Normal Gait, Normal Speech, Cranial Nerves 3-12 NL, Reflexes 2+ Assessment /Plan Assessment 60 year old female with PMH of Diabetes, hypertension, obesity, Arthritis, HLD, bladder problem 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 She denied any shortness of breath, denied any cough or phlegm, denied any recent URI. Denied any h/o Lupus like disorders. She does say she has arthritis and has some chronic knee pain about 3/10 dull aching in nature with no radiation. Does not need to take any medication for this. She was urgently seen by Dr Braswell and a bedside pericardiocentesis and pericardial drain insertion was done in ICU. Patient was admitted for pericardial effusion with tamponade. Pericardial effusion Most likely viral There is no right heart failure or pulmonary hypertension in the second echo, Normal EF 70%. borderline LVH. Normal right ventricular systolic function, no increase i central venous pressure, no valvular heart disease. Pulmonary artery pressure could not be assessed. On initial insertion of pericardial drain 1000 cc came out. Drain out now. Fluid study is exudative predominantly mononuclear. Cultures negative pathology/ cytology pending. RA is negative, NOVA neg, TSH normal management as per Dr Braswell. Diabetes Hold metformin and trulicity continue glimiperide Lispro as per sliding scale FS ac and HS Hypertension Bp low normal this am will stop lisinopril HLD statin will continue. Possible COPD and BRIONNA will need work up as outpatient. Obesity BMI 32.5 follow up with PMD. Plan/VTE VTE Prophylaxis Ordered?: Yes VS, I&O, 24H, Fishbone Vital Signs/I&O Vital Signs Date Time Temp Pulse Resp B/P (MAP) Pulse Ox O2 Delivery O2 Flow Rate FiO2 10/19/20 08:00 97.5 81 18 128/65 (86) 94 Room Air 10/17/20 12:00 1.0 10/17/20 04:00 94 I&O- Last 24 Hours up to 6 AM 10/19/20 06:00 Intake Total 1500 ml Output Total 1374 ml Balance 126 ml Laboratory Data 24H LABS Laboratory Tests 2 10/18/20 11:57: Bedside Glucose (Misc Panel) 76 10/18/20 17:00: Bedside Glucose (Misc Panel) 123H 10/18/20 19:42: Bedside Glucose (Misc Panel) 142H 10/19/20 03:34: Immature Granulocyte % (Auto) 0.4, Neutrophils (%) (Auto) 44.5, Lymphocytes (%) (Auto) 38.9, Monocytes (%) (Auto) 12.8H, Eosinophils (%) (Auto) 2.7, Basophils (%) (Auto) 0.7, Neutrophils # (Auto) 3.3, Lymphocytes # (Auto) 2.9, Monocytes # (Auto) 0.9H, Eosinophils # (Auto) 0.2, Basophils # (Auto) 0.1, Nucleated Red Blood Cells % (auto) 0.0, Anion Gap 7L, Glomerular Filtration Rate 55.9, Calcium Level 9.5 CBC/BMP Laboratory Tests 10/19/20 03:34 Microbiology Microbiology 10/16/20 Acid Fast Stain, Received Pending 10/16/20 Mycobacterial Culture, Received Pending 10/16/20 Fungal Smear, Received Pending 10/16/20 Fungal Culture, Received Pending 10/16/20 Gram Stain - Final, Complete 10/16/20 Anaerobic Culture - Final, Complete 10/16/20 Body Fluid Culture - Final, Complete JAS GARCIA MD Oct 19, 2020 11:46
[2020-10-19 12:00] VITALS: BP 132/62
--- NOTE | 2020-10-19 14:07 | IPN ---
PROGRESS NOTE DATE: 10/19/2020 SUBJECTIVE: Ms. Woods is doing quite well. She is breathing well and not complaining of any shortness of breath. Her pain is being well-controlled with a pericardiostomy tube insertion site. Pericardiostomy tube is draining minimally. OBJECTIVE: VITAL SIGNS: Show a T-max of 97.5 with a heart rate that ranges between 84 and 91 in sinus rhythm. Respiratory rate of 18 to 19 without the use of accessory muscles. She was 95% saturated now on room air and her blood pressure is ranging between 117/60 to 138/71. INTAKE AND OUTPUT: Over the past 24 hours has been recorded as 2880 in and 2880 out for equality. She has put out 80 mL in the chest tube and 2000 mL in urine output. Weight today is 85.8 kg compared to 81.1 kg on admission. RESPIRATORY: Her lungs show normal vesicular sounds without wheezes, rhonchi, or rales. Percussion notes are full to the diaphragm. CARDIAC: Without murmurs, clicks, gallops, and I do not hear a pericardial friction rub today. That may have been secondary to the pericardiostomy tube yesterday. Examination was conducted after removing the pericardiostomy tube. ABDOMEN: Soft and nontender. Bowel sounds are positive. There is no hepatomegaly. No costovertebral angle (CVA) tenderness. EXTREMITIES: Show no pretibial edema. No calf tenderness. No differential swelling of the upper extremities. SKIN: Warm, dry, and perfused without cyanosis or mottling, including that of the nail beds and knees. NECK: Supple. There is no jugular venous distention. No subcutaneous emphysema. Trachea is midline. MOUTH: Shows the mucous membranes to be pink and moist. Lips and gums without lesions and no thrush. EYES: Show her pupils equal and reactive. Extraocular movements are intact. Sclerae nonicteric. NEUROLOGIC: Shows II through XII intact. Normal gross motor, gross sensation intact. Gait is not tested. PSYCHIATRIC: Shows her to be awake, alert, and oriented x3 with appropriate mood and affect and conversational. DIAGNOSTIC STUDIES: Her white count today is 7.4 with hemoglobin and hematocrit of 15.8 and 48.4 respectively. Platelet count is 310,000 and stable. The differential shows 44% neutrophils, 38% lymphocytes, and 12% monocytes. There are no immature forms and no toxic granulations. Her electrolytes are normal with a BUN and creatinine of 27 and 1.07 secondary to volume contraction secondary to diuresis. Glucose is 90 with a calcium of 9.5. Her chest x-ray shows her lungs fully expand to the chest wall. Cardiac silhouette is normal. Costophrenic angles are sharp and there are no infiltrates. Pericardiostomy tube is in good place. IMPRESSION: 1. Pericardial effusion of unknown origin. 2. Diabetes. 3. Hypertension. 4. Hypercholesterolemia. 5. Tobacco abuse. 6. Chronic obstructive pulmonary disease (COPD). PLAN AND DISCUSSION: Her echocardiogram to Dr. Sanford's reading had trivial tricuspid regurgitation and pulmonary artery pressure could not be measured. She has 70% ejection fraction and it looked as if her right ventricle contracted normally, although it was not well seen. We are now left with a diagnosis of exclusion of either undocumented pulmonary hypertension secondary to her COPD or of viral origin. She had no viral symptoms on admission and denied an upper respiratory tract syndrome prior to admission. Her TSH is normal and she does not have renal failure. She has no evidence of autoimmune disease with a negative NOVA and negative rheumatoid factor. There is certainly no convincing evidence of a bacterial process. Her aorta has a normal dimension and there is no evidence of a dissection. There is no evidence of malignancy. I am going to remove her pericardiostomy tube today. I can see no reason why she cannot go home tomorrow. I did start her on cholchicine as an anti-inflammatory for pericarditis. This is being done empirically. She is not on any antibiotics with which I agree.
[2020-10-19 16:00] VITALS: BP 124/64
[2020-10-19 20:00] VITALS: BP 126/58
[2020-10-19] MEDS: ATORVASTATIN 20 MG TAB PO SCH (21:25)
[2020-10-19] MEDS: EZETIMIBE 10 MG TAB (ZETIA) PO SCH (21:25)
[2020-10-20 00:17] VITALS: BP 120/61
[2020-10-20] MEDS: LEVALBUTEROL 1.25 MG/0.5 ML CONCENTRATE NEB NEB SCH ×2 (01:56→07:12)
[2020-10-20 04:00] VITALS: BP 114/66
[2020-10-20 04:45] LABS: BASO # 0.1 10^3/uL (0.0-0.2); BASO % 0.9 % (0.0-1.0); EOS # 0.2 10^3/uL (0.0-0.5); EOS % 3.2 % (0.0-3.0); HEMATOCRIT 46.7 % (36.0-47.0); HEMOGLOBIN 15.3 g/dl (12.0-15.5); LYMPH # 2.3 10^3/uL (1.5-5.0); LYMPH % 35.2 % (24.0-44.0); MEAN CORPUSCULAR HEMOGLOBIN 29.2 pg (27.0-33.0); MEAN CORPUSCULAR HGB CONC 32.8 g/dl (32.0-36.5); MEAN CORPUSCULAR VOLUME 89.1 fl (80.0-96.0); MONO # 0.8 10^3/uL (0.0-0.8); MONO % 11.4 % (0.0-5.0); NEUTROPHILS # 3.3 10^3/uL (1.5-8.5); NEUTROPHILS % 49.1 % (36.0-66.0); PLATELET COUNT, AUTOMATED 314 10^3/uL (150-450); RED BLOOD COUNT 5.24 10^6/uL (4.00-5.40); WHITE BLOOD COUNT 6.6 10^3/uL (4.0-10.0)
[2020-10-20 05:07] LABS: BLOOD UREA NITROGEN 35 MG/DL (7-18); CALCIUM LEVEL 9.3 MG/DL (8.5-10.1); CARBON DIOXIDE LEVEL 27 MEQ/L (21-32); CHLORIDE LEVEL 108 MEQ/L (98-107); CREATININE FOR GFR 0.97 MG/DL (0.55-1.30); GLOMERULAR FILTRATION RATE > 60.0 (>51); GLUCOSE, FASTING 110 MG/DL (70-100); POTASSIUM SERUM 4.5 MEQ/L (3.5-5.1); SODIUM LEVEL 139 MEQ/L (136-145)
[2020-10-20] MEDS: HumaLOG INSULIN (NovoLOG) PER UNIT SC SCH (07:30)
--- NOTE | 2020-10-20 07:56 | REP ---
INDICATION: pericardial effusion COMPARISON: 10/19/2020 TECHNIQUE: PA and lateral. FINDINGS: Pericardial drainage catheter has been removed. The mediastinum and cardiac silhouette are normal. The lung lee are clear and without acute consolidation, effusion, or pneumothorax. The skeletal structures are intact and normal. IMPRESSION: No acute cardiopulmonary process. <Electronically signed by Juanito Mcdonald > 10/20/20 2182
[2020-10-20] MEDS: gemfibroziL 600 MG TAB PO SCH (08:36)
[2020-10-20] MEDS: PANTOPRAZOLE 40MG TAB (PROTONIX) PO SCH (08:36)
[2020-10-20] MEDS: GLIMEPIRIDE 2 MG TAB PO SCH (08:36)
[2020-10-20] MEDS: FUROSEMIDE 40 MG TAB PO SCH (08:37)
[2020-10-20] MEDS: COLCHICINE 0.6 MG TABLET PO SCH (08:37)
[2020-10-20] MEDS: POTASSIUM CHLORIDE 10 MEQ SR TABLET PO SCH (08:38)
[2020-10-20] MEDS ORDERED: COLC0.6T47 PO (08:49)
[2020-10-20 08:54] VITALS: BP 106/58
[2020-10-20] MEDS ORDERED: LISI40TA PO (08:55)
[2020-10-20] MEDS: HEPARIN SOD (PORCINE) 5000UNITS/ML 1ML VIAL/SYRINGE SC SCH (09:00)
[2020-10-20] MEDS: DOCUSATE SODIUM 100MG CAPSULE PO SCH (09:00)
[2020-10-20] MEDS: MOM 30ML SUSPENSION UDC PO SCH (09:00)
--- NOTE | 2020-10-20 17:41 | DS.PDOC ---
Discharge Summary General Date of Admission Oct 16, 2020 at 13:09 Date of Discharge 10/20/20 Discharge Summary PROCEDURES PERFORMED DURING STAY: [None]. DISCHARGE DIAGNOSES: Pericardial effusion with pericardial tamponade. Possible COPD Possible BRIONNA SECONDARY DIAGNOSIS: Diabetes, hypertension, obesity, Arthritis, HLD, bladder problem, Chronic neck pain s/p neck surgery, obesity COMPLICATIONS/CHIEF COMPLAINT: Pericardial Effusion. 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 She denied any shortness of breath, denied any cough or phlegm, denied any recent URI. Denied any h/o Lupus like disorders. She does say she has arthritis and has some chronic knee pain about 3/10 dull aching in nature with no radiation. Does not need to take any medication for this. She was urgently seen by Dr Braswell and a bedside pericardiocentesis and pericardial drain insertion was done in ICU. Patient was admitted for pericardial effusion with tamponade. Pericardial effusion Most likely viral There is no right heart failure or pulmonary hypertension in the second echo, Normal EF 70%. borderline LVH. Normal right ventricular systolic function, no increase i central venous pressure, no valvular heart disease. Pulmonary artery pressure could not be assessed. On initial insertion of pericardial drain 1000 cc came out. Drain out now. Fluid study is exudative predominantly mononuclear. Cultures negative pathology/ cytology negative for malignancy. RA is negative, NOVA neg, TSH normal Started on colchicine. Diabetes Hold metformin and trulicity continue glimiperide Lispro as per sliding scale FS ac and HS Hypertension Bp low normal this am will stop lisinopril HLD statin will continue. Possible COPD and BRIONNA will need work up as outpatient. Obesity BMI 32.5 follow up with PMD. DISCHARGE MEDICATIONS: Please see below. ALLERGIES: Please see below. PHYSICAL EXAMINATION ON DISCHARGE: VITAL SIGNS: Please see below. General Exam: Positive: Alert, Cooperative, No Acute Distress Eye Exam: Positive: PERRLA, Conjunctiva & lids normal, EOMI; Negative: Sclera icteric ENT Exam: Positive: Atraumatic, Mucous membr. moist/pink, Pharynx Normal Neck Exam: Positive: Supple, JVD; Negative: thyromegaly Chest Exam: Positive: Clear to auscultation, Normal air movement Heart Exam: Positive: Rate Normal, Regular Rhythm, Normal S1, Normal S2; Negative: Murmurs, Rubs Telemetry: Positive: No significant arrhythmia Abdomen Exam: Positive: Normal bowel sounds, Soft; Negative: Tenderness, Hepatospenomegaly Extremity Exam: Positive: Normal pulses; Negative: Clubbing, Cyanosis, Edema Skin Exam: Positive: Nl turgor and temperature; Negative: Breakdown, Lesion Neuro Exam: Positive: Normal Gait, Normal Speech, Cranial Nerves 3-12 NL, Reflexes 2+ LABORATORY DATA: Please see below. ACTIVITY: [As tolerated]. DIET: carb consistent DISPOSITION: 01 Home, Self-Care. DISCHARGE INSTRUCTIONS: Follow up Dr Braswell in 7 to 10 days Referral to Pulmonary for evaluation for BRIONNA. FOllow up Dr Copeland in 1 week DISCHARGE CONDITION: [Stable]. TIME SPENT ON DISCHARGE: 35 minutes. Vital Signs/I&Os Vital Signs Date Time Temp Pulse Resp B/P (MAP) Pulse Ox O2 Delivery O2 Flow Rate FiO2 10/20/20 08:54 98.2 85 18 106/58 (74) 95 Room Air 10/17/20 12:00 1.0 10/17/20 04:00 94 I&O- Last 24 Hours up to 6 AM 10/20/20 06:00 Intake Total 2140 ml Balance 2140 ml Laboratory Data Labs 24H Laboratory Tests 2 10/19/20 20:13: Bedside Glucose (Misc Panel) 162H 10/20/20 04:00: Immature Granulocyte % (Auto) 0.2, Neutrophils (%) (Auto) 49.1, Lymphocytes (%) (Auto) 35.2, Monocytes (%) (Auto) 11.4H, Eosinophils (%) (Auto) 3.2H, Basophils (%) (Auto) 0.9, Neutrophils # (Auto) 3.3, Lymphocytes # (Auto) 2.3, Monocytes # (Auto) 0.8, Eosinophils # (Auto) 0.2, Basophils # (Auto) 0.1, Nucleated Red Blood Cells % (auto) 0.0, Anion Gap 4L, Glomerular Filtration Rate > 60.0, Calcium Level 9.3 10/20/20 07:24: Bedside Glucose (Misc Panel) 158H CBC/BMP Laboratory Tests 10/20/20 04:00 FSBS Laboratory Tests Test 10/19/20 20:13 10/20/20 07:24 Range/Units Bedside Glucose (Misc Panel) 162 158 70-105 MG/DL Microbiology Microbiology 10/16/20 Acid Fast Stain, Received Pending 10/16/20 Mycobacterial Culture, Received Pending 10/16/20 Fungal Smear, Received Pending 10/16/20 Fungal Culture, Received Pending 10/16/20 Gram Stain - Final, Complete 10/16/20 Anaerobic Culture - Final, Complete 10/16/20 Body Fluid Culture - Final, Complete Discharge Medications Scheduled Atorvastatin Calcium (Atorvastatin Calcium) 80 Mg Tablet, 80 MG PO QHS, (Reported) Colchicine (Colchicine) 0.6 Mg Tablet, 0.6 MG PO DAILY Dulaglutide (Trulicity) 1.5 Mg/0.5 Ml Pen.injctr, 1.5 MG SC QWEEK, (Reported) MONDAYS Ezetimibe (Ezetimibe) 10 Mg Tablet, 10 MG PO QHS, (Reported) Gemfibrozil (Gemfibrozil) 600 Mg Tablet, 600 MG PO BID, (Reported) Glimepiride (Glimepiride) 2 Mg Tablet, 2 MG PO DAILY, (Reported) Levocetirizine Dihydrochloride (Levocetirizine Dihydrochloride) 5 Mg Tablet, 5 MG PO DAILY, (Reported) Lisinopril (Lisinopril) 40 Mg Tablet, 20 MG PO DAILY Metformin HCl (Metformin HCl) 1,000 Mg Tablet, 1,000 MG PO BID, (Reported) Scheduled PRN Fluticasone Propionate (Flonase Allergy Relief) 9.9 Ml [place].susp, 2 SPRAY NARES DAILY PRN for CONGESTION, (Reported) Allergies Coded Allergies: No Known Allergies (Unverified , 10/16/20) JAS GARCIA MD Oct 20, 2020 17:41
== END 2020-10-20 10:02 | disposition home or self-care (01) | DRG 207 ==
LOC: M ED 12:15 → M ED INP 13:09 → M PCU 15:19
PROVIDERS: ADMIT Family Medicine; ATTEND Internal Medicine Nephrology
PROC: 0W9D30Z Drainage of Pericardial Cavity with Drainage Device, Percutaneous Approach (ICD-10-PCS; principal; 2020-10-16)
DX: I31.3 Pericardial effusion (noninflammatory) (principal); I31.4 Cardiac tamponade; I10 Essential (primary) hypertension; E11.9 Type 2 diabetes mellitus without complications; E66.9 Obesity, unspecified; R35.0 Frequency of micturition; E78.5 Hyperlipidemia, unspecified; F17.210 Nicotine dependence, cigarettes, uncomplicated; G47.33 Obstructive sleep apnea (adult) (pediatric); J44.9 Chronic obstructive pulmonary disease, unspecified; M19.90 Unspecified osteoarthritis, unspecified site; Z79.84 Long term (current) use of oral hypoglycemic drugs; Z79.899 Other long term (current) drug therapy; Z68.32 Body mass index [BMI] 32.0-32.9, adult; Z20.828 Contact with and (suspected) exposure to other viral communicable diseases

== ENCOUNTER → 2020-11-02 | Outpatient (CLI) | payer OTHER ==
[~2020-11-02] MED LIST: ATOR80TA59 PO; COLC0.6T47 PO; EZET10TA21 PO; FLON1SPR NARES; GEMF600T5 PO; GLIM2TAB4 PO; LEVOTAB10 PO; LISI40TA PO; METF10004 PO; TRUL0.5I SC
--- NOTE | 2020-11-02 09:40 | REPPI ---
INDICATION: PERICARDIDAL EFFUSIOJN. COMPARISON: Comparison chest x-ray October 20, 2020. TECHNIQUE: Two views.. FINDINGS: The lungs are well inflated and free of infiltrate. The pleural angles are sharp. The heart size is normal. Pulmonary vasculature is not increased. No significant bony abnormality is seen. There are some degenerative changes in the thoracic spine and the patient is status post lower cervical spine discectomy and fusion plating. IMPRESSION: No active disease.. <Electronically signed by Ajay Arriaga > 11/02/20 0918
== END ==
LOC: M PLAIMG 09:01
PROVIDERS: ATTEND Thoracic Surgery (Cardiothoracic Vascular Surgery)
DX: I31.3 Pericardial effusion (noninflammatory) (principal)

== ENCOUNTER → 2024-07-22 | Outpatient (CLI) | payer OTHER ==
[~2024-07-22] MED LIST changes: -LISI40TA PO; +LISI40TA4 PO
== END ==
LOC: M RAD 11:02
PROVIDERS: ATTEND Registered Nurse
DX: Z87.891 Personal history of nicotine dependence (principal)

== ENCOUNTER → 2024-09-24 | Outpatient (CLI) | payer OTHER ==
[~2024-09-24] MED LIST changes: +FARX1TAB3 PO; +HYDR12CA PO; +METO1TAB32 PO; +SYMB16INH INH
== END ==
LOC: M SLEEP HO 10:06
PROVIDERS: ATTEND Internal Medicine Pulmonary Disease
DX: G47.33 Obstructive sleep apnea (adult) (pediatric) (principal)

== ENCOUNTER 2024-10-14 06:20 | Day surgery (SDC) | payer OTHER ==
[~2024-10-14] VITALS: Ht 162.6 cm; Wt 104.4 kg
[2024-10-14] MEDS ORDERED: LR 1,000 ML IV SCH (07:00)
[2024-10-14] MEDS: PHENYLEPHRINE 2.5% OPHTH SOL 2ML OD SCH (07:30)
[2024-10-14] MEDS: FLURBIPROFEN 0.03% OPHTH SOLN 2.5 ML OD SCH (07:30)
[2024-10-14] MEDS: CYCLOPENTOLATE 1% OPHTH SOLN 2ML BTL OD SCH (07:30)
[2024-10-14] MEDS: TETRACAINE 0.5% OPHTH SOLN 4ML OD SCH (07:30)
[2024-10-14] MEDS: INSULIN LISPRO (NovoLOG) PER UNIT SC PRN (07:30)
[2024-10-14] MEDS ORDERED: MIDAZOLAM INJ 2MG/2ML VIAL As Ordered ONE (07:59)
[2024-10-14] MEDS ORDERED: fentaNYL 100 MCG/2 ML INJECTION As Ordered ONE (07:59)
[2024-10-14] MEDS: LIDOCAINE 1% SDV 5ML VIAL As Ordered ONE (08:26)
[2024-10-14] MEDS: CEFUROXIME 1MG/0.1ML INTRACAMERAL INJ As Ordered ONE (08:37)
[2024-10-14 08:46] VITALS: BP 141/82; TEMP 97.1; O2SAT 93
== END 2024-10-14 09:14 | disposition home or self-care (01) ==
LOC: M SDC 06:20
PROVIDERS: ATTEND Ophthalmology
DX: H25.9 Unspecified age-related cataract (principal); E11.9 Type 2 diabetes mellitus without complications; Z79.899 Other long term (current) drug therapy; Z87.891 Personal history of nicotine dependence
CPT/HCPCS: 66984; J0697; J2250; J3010; V2632

== ENCOUNTER → 2024-10-18 | Outpatient (CLI) | payer OTHER ==
[2024-10-18 13:59] LABS: BASO % 0.3 % (0.0-1.0); EOS # 0.1 10^3/uL (0.0-0.5); EOS % 0.8 % (0.0-3.0); HEMATOCRIT 42.8 % (36.0-47.0); HEMOGLOBIN 13.7 g/dl (12.0-15.5); LYMPH # 2.1 10^3/uL (1.5-5.0); LYMPH % 23.8 % (24.0-44.0); MEAN CORPUSCULAR HEMOGLOBIN 28.8 pg (27.0-33.0); MEAN CORPUSCULAR VOLUME 90.1 fl (80.0-96.0); MONO # 0.7 10^3/uL (0.0-0.8); NEUTROPHILS # 5.9 10^3/uL (1.5-8.5); NEUTROPHILS % 66.7 % (36.0-66.0); PLATELET COUNT, AUTOMATED 274 10^3/uL (150-450); RED BLOOD COUNT 4.75 10^6/uL (4.00-5.40); WHITE BLOOD COUNT 8.9 10^3/uL (4.0-10.0)
[2024-10-18 14:07] LABS: ERYTHROCYTE SEDIMENTATION RATE 35 mm/hr (0-30)
== END ==
LOC: M LAB 12:20
PROVIDERS: ATTEND Optometrist
DX: G45.3 Amaurosis fugax (principal)

== ENCOUNTER → 2024-10-31 | Outpatient (CLI) | payer OTHER | LOC: M SLEEP 20:00 | PROVIDERS: ATTEND Internal Medicine Pulmonary Disease | DX: G47.33 Obstructive sleep apnea (adult) (pediatric) (principal); G47.61 Periodic limb movement disorder ==

== ENCOUNTER 2024-11-01 05:35 | Emergency (ER) | payer OTHER ==
[~2024-11-01] VITALS: Ht 162.6 cm; Wt 100.0 kg
[2024-11-01] MEDS ORDERED: ISOVUE-370 76% 100ML VIAL As Ordered ONE (07:32)
[2024-11-01 08:01] LABS: BASO % 0.3 % (0.0-1.0); EOS # 0.1 10^3/uL (0.0-0.5); HEMATOCRIT 39.1 % (36.0-47.0); HEMOGLOBIN 12.9 g/dl (12.0-15.5); LYMPH # 1.9 10^3/uL (1.5-5.0); LYMPH % 28.6 % (24.0-44.0); MEAN CORPUSCULAR HEMOGLOBIN 29.2 pg (27.0-33.0); MEAN CORPUSCULAR VOLUME 88.5 fl (80.0-96.0); MONO # 0.6 10^3/uL (0.0-0.8); MONO % 9.1 % (2.0-8.0); NEUTROPHILS % 60.6 % (36.0-66.0); PLATELET COUNT, AUTOMATED 260 10^3/uL (150-450); RED BLOOD COUNT 4.42 10^6/uL (4.00-5.40); WHITE BLOOD COUNT 6.7 10^3/uL (4.0-10.0)
[2024-11-01 08:14] LABS: INR 0.9; PARTIAL THROMBOPLASTIN TIME 25.3 SECONDS (24.8-34.2); PROTHROMBIN TIME 12.5 SECONDS (12.5-14.5)
[2024-11-01 08:21] LABS: BLOOD UREA NITROGEN 34 MG/DL (9-23); CALCIUM LEVEL 9.5 MG/DL (8.3-10.6); CARBON DIOXIDE LEVEL 23 MMOL/L (20-31); CHLORIDE LEVEL 107 MMOL/L (98-107); CREATININE FOR GFR 0.88 MG/DL (0.55-1.30); GLOMERULAR FILTRATION RATE > 60.0 (>45); GLUCOSE, FASTING 217 MG/DL (74-106); SODIUM LEVEL 140 MMOL/L (136-145)
[2024-11-01] MEDS: NS 500 ML IV ONE (08:21)
[2024-11-01 09:12] LABS: CPK CREATINE PHOSPHOKINASE 77 U/L (34-145); MB/CK RELATIVE INDEX 1.29 (< OR =4)
[2024-11-01 09:24] LABS: LIPASE 75 U/L (12-53)
[2024-11-01 09:26] LABS: ALBUMIN 3.7 G/DL (3.2-5.2); ALKALINE PHOSPHATASE 96 U/L (35-104); ALT/SGPT 34 U/L (7.0-40); AST/SGOT 25 U/L (<34); BILIRUBIN,DIRECT 0.2 MG/DL (<0.4); BILIRUBIN,TOTAL 0.6 MG/DL (0.3-1.2); TOTAL PROTEIN 7.1 G/DL (5.7-8.2)
[2024-11-01] MEDS: CLOPIDOGREL 75 MG TAB PO ONE (10:10)
[2024-11-01] MEDS: ASPIRIN 81MG CHEW TABLET PO ONE (10:10)
[2024-11-01 11:06] VITALS: BP 167/64; TEMP 98.2; O2SAT 95
== END 2024-11-01 11:12 | disposition short-term general hospital (02) ==
LOC: M ED 05:35
DX: I65.21 Occlusion and stenosis of right carotid artery (principal); H53.131 Sudden visual loss, right eye; E11.9 Type 2 diabetes mellitus without complications; I10 Essential (primary) hypertension; E78.5 Hyperlipidemia, unspecified; Z87.891 Personal history of nicotine dependence; Z79.4 Long term (current) use of insulin; Z79.84 Long term (current) use of oral hypoglycemic drugs; Z79.899 Other long term (current) drug therapy
CPT/HCPCS: 70450; 70496; 70498; 70551; 71045; 80047; 80048; 80076; 82550; 82553; 83690; 84484; 85025; 85610; 85730; 87486; 87581; 87633; 87798; 93005; 93041; 94760; 96360; 99285; Q9967

== ENCOUNTER 2024-11-14 15:00 | Emergency (ER) | payer OTHER ==
[~2024-11-14] VITALS: Ht 162.6 cm; Wt 100.0 kg
[2024-11-14] MEDS ORDERED: ISOVUE-370 76% 100ML VIAL As Ordered ONE (15:51)
[2024-11-14 16:14] LABS: BASO % 0.3 % (0.0-1.0); EOS # 0.1 10^3/uL (0.0-0.5); EOS % 1.3 % (0.0-3.0); HEMATOCRIT 36.4 % (36.0-47.0); HEMOGLOBIN 11.7 g/dl (12.0-15.5); LYMPH # 1.7 10^3/uL (1.5-5.0); MEAN CORPUSCULAR HEMOGLOBIN 28.5 pg (27.0-33.0); MEAN CORPUSCULAR HGB CONC 32.1 g/dl (32.0-36.5); MEAN CORPUSCULAR VOLUME 88.6 fl (80.0-96.0); MONO # 0.7 10^3/uL (0.0-0.8); MONO % 9.4 % (2.0-8.0); NEUTROPHILS # 5.1 10^3/uL (1.5-8.5); NEUTROPHILS % 66.7 % (36.0-66.0); PLATELET COUNT, AUTOMATED 284 10^3/uL (150-450); RED BLOOD COUNT 4.11 10^6/uL (4.00-5.40); WHITE BLOOD COUNT 7.6 10^3/uL (4.0-10.0)
[2024-11-14 16:22] VITALS: BP 122/68; TEMP 97.8; O2SAT 95
[2024-11-14 16:26] LABS: INR 0.91; PARTIAL THROMBOPLASTIN TIME 25.3 SECONDS (24.8-34.2); PROTHROMBIN TIME 12.6 SECONDS (12.5-14.5)
[2024-11-14 16:37] VITALS: BP 167/70; O2SAT 94
[2024-11-14 16:55] VITALS: BP 151/71; O2SAT 93
[2024-11-14 17:10] VITALS: BP 158/69; O2SAT 97
[2024-11-14 17:15] VITALS: BP 158/69; TEMP 97.2; O2SAT 97
== END 2024-11-14 17:30 | disposition home or self-care (01) ==
LOC: M ED 15:00 → EDBD 15:00 → M ED 17:30
DX: R51.9 Headache, unspecified (principal); E11.9 Type 2 diabetes mellitus without complications; I10 Essential (primary) hypertension; J45.909 Unspecified asthma, uncomplicated; Z86.73 Personal history of transient ischemic attack (TIA), and cerebral infarction without residual deficits; Z91.040 Latex allergy status; Z79.4 Long term (current) use of insulin; Z79.84 Long term (current) use of oral hypoglycemic drugs; Z79.899 Other long term (current) drug therapy
CPT/HCPCS: 36415; 70450; 70496; 70498; 71045; 80047; 85025; 85610; 85730; 93005; 93041; 94760; 99285; Q9967

== ENCOUNTER → 2025-01-21 | Outpatient (CLI) | payer OTHER | LOC: M PLAIMG 12:02 | PROVIDERS: ATTEND Internal Medicine Pulmonary Disease | DX: R91.8 Other nonspecific abnormal finding of lung field (principal); I25.10 Atherosclerotic heart disease of native coronary artery without angina pectoris ==

== ENCOUNTER 2025-08-04 15:14 | Emergency (ER) | payer OTHER ==
[~2025-08-04] VITALS: Ht 162.6 cm; Wt 104.5 kg
[~2025-08-04 15:14] MED LIST changes: -COLC0.6T47 PO; +COLC0.6T53 PO; -EZET10TA21 PO; +EZET10TA57 PO; +HYDR12.510 PO; -HYDR12CA PO; +LISI40TA10 PO; -LISI40TA4 PO
[2025-08-04] MEDS ORDERED: ISOVUE-370 76% 100 ML VIAL As Ordered ONE (15:48)
[2025-08-04 16:01] LABS: BASO # 0.1 10^3/uL (0.0-0.2); BASO % 0.7 % (0.0-1.0); EOS # 0.3 10^3/uL (0.0-0.5); EOS % 3.8 % (0.0-3.0); LYMPH # 2.1 10^3/uL (1.5-5.0); LYMPH % 27.6 % (24.0-44.0); MONO # 0.8 10^3/uL (0.0-0.8); MONO % 9.9 % (2.0-8.0); NEUTROPHILS # 4.4 10^3/uL (1.5-8.5); NEUTROPHILS % 57.6 % (36.0-66.0); PLATELET COUNT, AUTOMATED 253 10^3/uL (150-450)
[2025-08-04 16:13] LABS: INR 0.85
[2025-08-04 16:38] LABS: CALCIUM LEVEL 8.8 MG/DL (8.3-10.6); CARBON DIOXIDE LEVEL 23.0 MMOL/L (20-31); CHLORIDE LEVEL 106.0 MMOL/L (98-107); CREATININE FOR GFR 0.82 MG/DL (0.55-1.30); GLOMERULAR FILTRATION RATE 79.8 (>45); POTASSIUM SERUM 4.6 MMOL/L (3.5-5.1); SODIUM LEVEL 140.0 MMOL/L (136-145)
[2025-08-04 20:20] VITALS: BP 148/69; TEMP 97.6; O2SAT 98
[2025-08-04 20:20] LABS: MAGNESIUM LEVEL 2.3 MG/DL (1.8-2.4)
== END 2025-08-04 20:23 | disposition home or self-care (01) ==
LOC: M ED 15:14
DX: G44.009 Cluster headache syndrome, unspecified, not intractable (principal); E11.9 Type 2 diabetes mellitus without complications; I10 Essential (primary) hypertension; E78.5 Hyperlipidemia, unspecified; F17.210 Nicotine dependence, cigarettes, uncomplicated; Z86.73 Personal history of transient ischemic attack (TIA), and cerebral infarction without residual deficits; Z91.040 Latex allergy status; Z79.4 Long term (current) use of insulin; Z79.84 Long term (current) use of oral hypoglycemic drugs; Z79.899 Other long term (current) drug therapy
CPT/HCPCS: 36415; 70450; 70496; 70498; 71045; 80047; 80048; 83735; 85025; 85610; 85730; 86850; 86900; 86901; 93005; 93041; 94760; 99285; Q9967

== ENCOUNTER → 2025-08-18 | Outpatient (CLI) | payer OTHER | LOC: M WUC 10:57 | PROVIDERS: ATTEND Registered Nurse | DX: M79.662 Pain in left lower leg (principal) ==

== ENCOUNTER → 2025-08-25 | Outpatient (CLI) | payer OTHER ==
[2025-08-25 12:45] LABS: FREE T4 1.2 NG/DL (0.89-1.76)
== END ==
LOC: M WUC 09:42
PROVIDERS: ATTEND Psychiatry & Neurology Neurology
DX: R51.9 Headache, unspecified (principal); E07.9 Disorder of thyroid, unspecified